=== PATIENT | female | born 1965 | race Two or more races ===

== ENCOUNTER 2020-08-19 23:29 | Emergency (ER) | payer OTHER ==
[~2020-08-19] VITALS: Ht 165.1 cm; Wt 70.3 kg
[2020-08-19] MEDS ORDERED: ARMOUR THYROID15 MG (23:43)
[2020-08-19] MEDS ORDERED: ARMOUR THYROID60 M1 (23:43)
[2020-08-20] MEDS ORDERED: PEPCID AC20 MG PO (01:18)
[2020-08-20] MEDS ORDERED: AMOXICILLIN500 M1 PO (01:18)
[2020-08-20] MEDS ORDERED: NAPROXEN375 MG PO (01:18)
[2020-08-20] MEDS ORDERED: INTESTINEX680 M1 PO (01:18)
== END 2020-08-20 01:48 | disposition home or self-care (01) ==
LOC: ER 23:29
DX: S61.227A Laceration with foreign body of left little finger without damage to nail, initial encounter (principal); W25.XXXA Contact with sharp glass, initial encounter; Y93.89 Activity, other specified; Y92.89 Other specified places as the place of occurrence of the external cause; Y99.8 Other external cause status

== ENCOUNTER 2024-02-28 05:41 | Day surgery (SDC) | payer OTHER ==
[~2024-02-28 05:41] MED LIST: AMOXICILLIN500 M1 PO; ARMOUR THYROID15 MG; ARMOUR THYROID60 M1; INTESTINEX680 M1 PO; NAPROXEN375 MG PO; PEPCID AC20 MG PO
[2024-02-28] MEDS ORDERED: CEFAZOLIN SODIUM 1,000 MG in 0.9 % SODIUM CHLORIDE 50 ML IV ONE (08:30)
[2024-02-28] MEDS ORDERED: NEOMYCIN/POLYMYXIN B/HYDROCORT 20 DR/ML BOTTLE OT ONE (08:45)
[2024-02-28] MEDS ORDERED: POVIDONE-IODINE 118 ML BOTT TOP ONE (08:45)
[2024-02-28] MEDS ORDERED: DEXAMETHASONE SODIUM PHOSP/PF 10 MG/ML VIAL IV ONE (08:45)
[2024-02-28] MEDS ORDERED: EPINEPHRINE HCL/PF 1 MG/ML AMPUL IR ONE (08:45)
[2024-02-28] MEDS ORDERED: BACITRACIN 28.35 GM OINT.TUBE TOP ONE (08:45)
[2024-02-28] MEDS ORDERED: LIDOCAINE HCL 1%/EPINEPHRINE 20ML VIAL IJ ONE (08:45)
[2024-02-28] MEDS ORDERED: CIPROFLOXACIN2.5 ML OTIC (09:02)
[2024-02-28] MEDS ORDERED: CEPHALEXIN500 MG PO (09:02)
== END 2024-02-28 11:15 | disposition home or self-care (01) ==
LOC: CIR.AMB 05:41
PROVIDERS: ATTEND Otolaryngology Otology & Neurotology
DX: H72.01 Central perforation of tympanic membrane, right ear (principal); H90.11 Conductive hearing loss, unilateral, right ear, with unrestricted hearing on the contralateral side